=== PATIENT | male | born 1955 | race Caucasian/White ===

== ENCOUNTER 2021-02-10 08:43 | Outpatient (CLI) | payer BC | END 2021-02-10 08:44 | disposition home or self-care (01) | LOC: CSHCT 08:43 | PROVIDERS: ATTEND Nurse Practitioner | DX: Z01.810 Encounter for preprocedural cardiovascular examination (principal); I48.19 Other persistent atrial fibrillation; C79.31 Secondary malignant neoplasm of brain | CPT/HCPCS: 71275 ==